=== PATIENT | male | born 1940 | race Caucasian/White ===

== ENCOUNTER → 2018-03-19 | Outpatient (CLI) | payer OTHER | LOC: BRMIMAGING 10:23 | PROVIDERS: ATTEND Internal Medicine | DX: K76.0 Fatty (change of) liver, not elsewhere classified (principal); Z90.49 Acquired absence of other specified parts of digestive tract | CPT/HCPCS: 76705-PO ==

== ENCOUNTER → 2018-04-03 | Outpatient (CLI) | payer OTHER | DX: R10.11 Right upper quadrant pain (principal); M48.061 Spinal stenosis, lumbar region without neurogenic claudication | CPT/HCPCS: 74177; Q9967 ==

== ENCOUNTER 2018-05-11 14:36 | Emergency (ER) | payer OTHER ==
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
[2018-05-11 17:00] VITALS: BP 123/82
== END 2018-05-11 17:00 | disposition home or self-care (01) ==
DX: S06.9X1A Unspecified intracranial injury with loss of consciousness of 30 minutes or less, initial encounter (principal); S40.211A Abrasion of right shoulder, initial encounter; Y04.8XXA Assault by other bodily force, initial encounter; Y93.H9 Activity, other involving exterior property and land maintenance, building and construction; Y92.019 Unspecified place in single-family (private) house as the place of occurrence of the external cause; I25.10 Atherosclerotic heart disease of native coronary artery without angina pectoris; E78.00 Pure hypercholesterolemia, unspecified